=== PATIENT | female | born 1950 | race Caucasian/White ===

== ENCOUNTER → 2017-02-05 | Day surgery (SDC) | payer OTHER ==
[~2017-02-05] MED LIST: BUPIVACAINE/EPINEPHRINE 0.5% PF 30 ML VIAL ONE; MIDAZOLAM HCL 2 MG/2 ML VIAL ONE; ONDANSETRON HCL 4 MG/2 ML VIAL IV PUSH ONE; PROPOFOL 200 MG/20 ML AMP IV ONE; SODIUM CHLOR 0.9% 1000 ML BAG IV ONE; ceFAZolin INJ 1,000 MG VIAL ONE; oxyCODONE/ACETAMINOPHEN 5 MG/325 MG TAB ONE
--- NOTE | 2017-02-05 17:50 | MP ---
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 PROCEDURE Right knee arthroscopic extensive debridement and arthroscopic lateral release and arthroscopic removal of bony overgrowth of the lateral patella. ANESTHESIA General SURGEON Alen Alvarez MD [employer] INSTALLER SUPERVISOR SURGEON Krzysztof NAGEL ESTIMATED BLOOD LOSS Minimal DRAINS None SPECIMEN None COMPLICATIONS None known. INDICATION Esther Lowe is an adult female who has undergone bilateral total knee arthroplasty. She remains markedly limited with pain associated with the lateral aspect of her right knee pain with some limitation on maximal knee flexion and direct tenderness on the lateral aspect of the patella with some bony overgrowth and some calcification within the soft tissue on the lateral aspect of the knee. Conservative measures have failed and she has persistent symptoms. Therefore, she is offered surgical intervention for this problem. Risks, benefits were thoroughly discussed and a detailed informed consent has been obtained. The first sampler is an advanced registered nurse practitioner and his skill set was medically necessary for the performance of the operation due to the complexity of performing an arthroscopic treatment of a total knee replacement where we needed to hold the scope and manipulate the patella and manipulate the instruments used to resect the scar tissue and to resect the bone and perform the lateral release. PROCEDURE IN DETAIL The patient was brought into the operating room, placed under general anesthetic. The right lower extremity was draped and prepped in usual sterile fashion. IV antibiotics were given. Time-out was completed. We had a tourniquet, but we did not use the tourniquet. We used Marcaine about the portal injections and we made a superior medial and superior lateral portal. Blunt trocar was used to introduce the cannula and the knee was insufflated with saline. We noted hypertrophic scar tissue in the suprapatellar region and lateral gutter and scarred down to the distal femur. We proceeded with extensive debridement using arthroscopic shaver and arthroscopic cautery and thoroughly cleaned out suprapatellar pouch and obtained excellent hemostasis and then the scar tissue in the lateral gutter and then proceeded with lateral retinacular release and then proceeded with mobilizing the tissue on the lateral edge of the patella and resecting the lateral patella using the arthroscopic bur. Post arthroscopic intraoperative photographs were taken. Ultimately, we had excellent hemostasis. We had good tracking of the patella. We had improvement in the tracking of the patella and in the range of motion and the bone was removed. Hemostasis was very good. The arthroscopic equipment was removed. We closed with a 3-0 Vicryl vertical mattress sutures. The patient was awaken and returned to the recovery room in stable condition. MD CHARMAINE Sanders/ /2:05 PM /5:34 PM LANIE
== END | disposition home or self-care (01) ==
LOC: ESDC 08:00
PROVIDERS: ATTEND Orthopaedic Surgery Sports Medicine
DX: M24.661 Ankylosis, right knee (principal); M22.2X2 Patellofemoral disorders, left knee; M25.761 Osteophyte, right knee; Z96.651 Presence of right artificial knee joint
CPT/HCPCS: 01400; 29873; 29876; J0690; J2250; J2405; J3010; J7030